=== PATIENT | male | born 1965 | race Caucasian/White ===

== ENCOUNTER 2019-09-16 00:46 | Outpatient (CLI) | payer BC, SELFPAY ==
[2019-09-16 09:50] LABS: Abs Immature Grans 0.01 k/cumm (0.0-0.09); Absolute Basophil Count 0.05 k/cumm (0.0-0.2); Absolute Eosinophil Count 0.07 k/cumm (0.0-0.7); Absolute Lymphocyte Count 2.07 k/cumm (1.2-3.4); Absolute Monocyte Count 0.54 k/cumm (0.11-0.7); Absolute Neutrophil Count 2.68 k/cumm (1.2-6.7); Basophils % 0.9; Eosinophils % 1.3; HCT 44.8 % (40.0-50.0); HGB 15.8 g/dL (13.5-17.5); Immature Grans % 0.2; Lymphocytes % 38.2; Mean Corp. HGB Concentration 35.3 g/dL (32.0-36.0); Mean Corpuscular Hemoglobin 29.6 pg (27.0-33.0); Mean Corpuscular Volume 83.9 fL (80-95); Mean Platelet Volume 9.6 fL (8.0-11.0); Neutrophils % 49.4; Platelet Count 268 x1000/uL (130-400); RBC 5.34 m/cumm (4.50-6.00); RBC Distribution Width 12.1 % (11.8-14.1); White Blood Cell Count 5.42 k/cumm (4.4-10.8)
[2019-09-16 10:39] LABS: Triglyceride 143 mg/dL (<150)
[2019-09-16 12:00] LABS: Calculated LDL 90 mg/dL; Cholesterol 170 mg/dL (<200); HDL Cholesterol 52 mg/dL (40-60)
[2019-09-16 17:49] LABS: Hemoglobin A1C 8.2 % (4.5-6.2)
[2019-09-18 11:12] LABS: PSA, Diagnostic 3.3 ng/mL (0.0-3.5)
== END 2019-09-16 01:06 ==
PROVIDERS: PCP Family Medicine; Visit Provider Family Medicine
DX: E11.9 Type 2 diabetes mellitus without complications (principal); C61 Malignant neoplasm of prostate
CPT/HCPCS: 36415; 80053; 80061; 83036; 84153; 85025

== ENCOUNTER 2020-08-06 01:44 | Outpatient (CLI) | payer BC, SELFPAY ==
[2020-08-06 13:29] LABS: Anion Gap 5.9 mmol/L (3-11); BUN 18 mg/dL (7-18); CO2 30.1 mmol/L (21.0-32.0); CREATININE 0.95 mg/dL (0.70-1.30); Calcium 9.7 mg/dL (8.5-10.1); Chloride 105 mmol/L (98-107); Glucose 146 mg/dL (74-106); Potassium 4.4 mmol/L (3.5-5.1); Sodium 141 mmol/L (136-145); Vitamin B12 1050 pg/mL (193-986)
[2020-08-06 14:37] LABS: Hemoglobin A1C 6.9 % (<5.7)
== END 2020-08-06 02:04 ==
PROVIDERS: PCP Family Medicine; Visit Provider Family Medicine
DX: E11.9 Type 2 diabetes mellitus without complications (principal)
CPT/HCPCS: 36415; 80048; 82607; 83036

== ENCOUNTER 2020-12-25 12:04 | Outpatient (CLI) | payer BC, SELFPAY ==
--- NOTE | 2020-12-25 15:00 | RT.EKG_ITS ---
APPROVED REPORT Exam: Resting ECG Patient Location: O HR:66 bpm ECG Measurements Heart Rate 66 AXIS AL 186 P 45 QRSd 106 QRS -54 QT 383 T 29 QTc 402 Conclusion Sinus rhythm...normal P axis, V-rate 60- 99 Left anterior fascicular block...axis(240,-40), init forces inf
== END 2020-12-25 12:05 | disposition home or self-care (01) ==
LOC: RT 01-06 12:04
PROVIDERS: PCP Family Medicine; Visit Provider Surgery
DX: R94.31 Abnormal electrocardiogram [ECG] [EKG] (principal); E11.9 Type 2 diabetes mellitus without complications; E66.3 Overweight; Z72.0 Tobacco use
CPT/HCPCS: 93005; 93010

== ENCOUNTER 2021-01-13 03:19 | Outpatient (CLI) | payer BC, SELFPAY ==
[2021-01-13 10:57] LABS: Source Nasal/Nares
[2021-01-14 08:58] LABS: COVID-19 PCR Negative (Negative)
== END 2021-01-13 03:20 | disposition home or self-care (01) ==
LOC: LBO 03:20
PROVIDERS: PCP Family Medicine; Visit Provider Surgery
DX: Z20.822 Contact with and (suspected) exposure to COVID-19 (principal); Z01.818 Encounter for other preprocedural examination
CPT/HCPCS: 87635

== ENCOUNTER 2021-01-14 06:10 | Day surgery (SDC) | payer BC, SELFPAY ==
[2021-01-14] VITALS (8 sets, daily range): BP systolic 94–125; BP diastolic 49–72; PULSE 60–84; RESP 14–18; TEMP 36.2–36.7; O2SAT 94–97
[2021-01-14] MEDS: Lactated Ringers 1,000 ML 80 ML IV (07:05)
[2021-01-14] MEDS: ceFAZolin 2 GM/50 ML BAG IVPB (09:20)
--- NOTE | 2021-01-14 09:32 | PDOC.DSDIS_ITS ---
Discharge Plan Disposition Patient Disposition: HOME Condition: Good Discharge Details Reason For Visit: right inguinal hernia repair Attending Provider: Jemima Sainz Primary Care Provider: Julio Cesar Ribera Meds and New Rx's Prescriptions: New ibuprofen 600 mg tablet 600 mg PO Q6H PRNQty: 90 RF: 3 tramadol [Ultram] 50 mg tablet 50 mg PO Q4H PRNQty: 7 RF: 0 Continued Jardiance 25 mg tablet 25 mg PO QAM Qty: 90 RF: 3 (DME) FreeStyle Dyllan 14 Day [place] Misc See Rx Instructions .ROUTE .MEDSUPPLY Qty: 1 RF: 0 finasteride 5 mg tablet 5 mg PO DAILY RF: 0 venlafaxine 225 mg tablet extended release 24hr 225 mg PO DAILY Qty: 90 RF: 3 (DME) blood-glucose meter [Advanced Glucose Meter] [facility] See Rx Instructions .ROUTE .MEDSUPPLY Qty: 1 RF: 0 (DME) FreeStyle Dyllan 14 Day Sensor Kit See Rx Instructions .ROUTE .MEDSUPPLY Qty: 13 RF: 1 metformin 500 mg tablet 1,000 mg PO BID Qty: 360 RF: 3 tamsulosin 0.4 mg capsule 0.8 mg PO DAILY Qty: 180 RF: 3 (DME) Advanced Gluc Meter Test Strip Strip See Rx Instructions .ROUTE .MEDSUPPLY Qty: 10 RF: 5 vitamin B complex Capsule 1 cap PO DAILY RF: 0 Discharge Instructions Additional Instructions: Dr. Sainz HERNIA REPAIR ? POSTOPERATIVE INSTRUCTIONS Patients who have this type of surgery can usually be expected to return to work within two weeks and have minimal amounts of discomfort. ? ACTIVITY: The day of surgery should be spent resting. However, you can be up for short periods of time, I.E., going to the bathroom or kitchen. Avoid lifting or straining. On the day following surgery, you can be up and about as desired. ? LIFTING: Restrict your lifting to no more than five (5) pounds for the first week following surgery. For the second week after surgery, don?t lift more than ten pounds. We will decide when you are done with restrictions and when you can return to work, at your follow-up appointment. No sexual activity for two weeks. ? DIET: There are no dietary restrictions following surgery. However, you may want to start with small amounts of liquids to avoid nausea the day of surgery. ? INCISION CARE: You will notice purple skin glue closing the incision. Do not peel this off- it will wear off on its own. After 24 hours you may shower. The dressing may be replaced for comfort, but is not necessary. An ice bag may be applied to the incision for 72 hours following surgery. ? SIGNS OF INFECTION: It is not unusual to have some black and blue discoloration of the skin around the incision, but also scrotum and penis. It will slowly disappear. If you have any increased redness, drainage, fever (above 100 degrees), please contact your doctor for an examination. ? DISCOMFORT: You may expect to have some mild discomfort at the incision sight. If severe pain develops you should contact your doctor for further instructions. ? URINATION: Patients who have surgery occasionally have problems urinating. If you experience problems and are not able to urinate within 6 hours following your surgery, please call your doctor immediately or go to your nearest Emergency Room for evaluation. ? DRIVING: NO driving for three (3) days after surgery, or if you are still taking narcotic pain medication. ? MEDICATIONS: Alternate Tylenol 1000mg by mouth every 8 hours and Ibuprofen 600mg every 6 hours. Make sure you take ibuprofen with food and not on an empty stomach. Take the Tylenol and ibuprofen continuously for the first 72hrs- not just when you have pain. Use the tramadol for breakthrough pain. Use ICE! Twenty minutes on, and then off, continuously for the first 72hours. If you are taking narcotic pain medication, follow the instructions on the label and do not drive. Pain medications can make you very constipated. Make sure you are moving your bowels daily. If not, take Miralax, milk of magnesia or magnesium citrate. Anesthesia makes you very constipated. Take a dose of milk of magnesia the morning after surgery. ? REPORT: Unusual swelling, severe pain, unresolved nausea, signs of infection, or difficulty in urination to your surgeon. Follow up in clinic with Dr. Sainz in 1-2 weeks. [phone] Activity:: see above Remove Dressings/Wound Care:: 24 hours Shower/Bathe:: 24 hours Diet:: Carb Counting Discharge Orders Discharge Orders: Discharge Order (Routine); Ordered 01/14/21 Ordered By: Jemima M Stoiber DS: Diagnosis Discharge Diagnosis (1) Inguinal hernia of right side without obstruction or gangrene: Status: Acute
[2021-01-14] MEDS: Bupivacaine 0.25% Pres-Free 30 ML VIAL (10:27)
--- NOTE | 2021-01-14 10:31 | ROE_ITS ---
Date of service: 01/14/21 Time of Service: 10:31 Operative Note Operative Note DATE OF PROCEDURE: 01/14/21 PRE-OP DIAGNOSIS: right inguinal hernia POST-OP DIAGNOSIS: other (indirect) SURGEON: Jemima Blackmon ADJUNCT SOCIOLOGY PROFESSOR: Kathy Marquez ANESTHESIA TYPE: Local By Surgeon, General LMA/ETT and Primary Nerve Block Refer to Anesthesia Record ESTIMATED BLOOD LOSS: 5 PATHOLOGY: none sent COMPLICATIONS: None Patient was transported to: same day Patient's condition: stable Procedure Description: INDICATIONS: The pt is here today for surgery regarding symptomatic --- inguinal hernia that has failed outpatient conservative medical management and he is here today for repair. Informed consent was obtained, explaining risks and benefits of the procedure including but not limited to bleeding, infection, pneumonia, blood clots, chronic pain, chronic numbness, damage to testicle resulting in removal, recurrence of hernia, reaction to Mesh necessitating removal, and other unforetold complications, and complications of anesthesia-which were addressed by the HOROLOGIST APPRENTICE. The patient is marked in preOp prior to the procedure DESCRIPTION OF PROCEDURE: The pt is then brought to the operative room suite. Anesthesia was administered per the Department of Anesthesia. A nerve block was performed by anesthesia under US guidance. The patient was prepped and draped in the usual sterile fashion using ChloraPrep scrub solution. Pause for the cause was done. He did receive preop IV antibiotics, and 30 mL of .25% Marcaine w/ epinephrine was used for local anesthetization. A #12 blade was used to make an incision over the external ring. Electrocautery used to provide hemostasis and dissect down to the fascia. The fascia was pretty much obliterated and there was nothing to open. The cord is elevated. The nerve was not identified. There small a cord lipomas-this is excised. Electro-cautery is used to provide hemostasis. A [place] drain was placed around the cord to assist in mobilization. The cord was explored. There was is a large hernia sac on the cord. There is no direct hernia pushing through the floor. The hernia sac is dissected off the cord using a combination of blunt dissection and electrocautery. Electrocautery is used to provide hemostasis. There are no contents within the hernia sac. The hernia sac is than inverted and returned to the abdominal cavity. A medium size plug is than inserted into the defect through the internal ring, and over sewn to tighten up the ring with 2-0 vicryl. Please see RN notes from Lot number of the Bard mesh patch/plug. The cord structures are still able to freely move through the ring itself. The patch was then placed onto the floor, and using 2-0 Vicryl, sewn into the pubic tubercle and the shelving portions of the inguinal ligament, in the standard Lichenstein fashion. The tails of the mesh are brought around the cord, sewn together w/ 2-0 Vicryl, and tucked under the external oblique. The wound was copiously irrigated. There was no bleeding noted. The drain was removed. All structures are returned to normal anatomical position. The nerve is not sewn into the mesh, nor caught up in any sutures. The external oblique is re-approximated using 2-0 vicryl in a running fashion. Deep tissue was approximated with 3-0 Vicryl in a running fashion, and skin was approximated with 4-0 Monocryl in a running subcuticular fashion. Skin glue and sterile dressings are applied. The patient tolerated the procedure without complications to recovery in stable condition. JEMIMA BLACKMON, DO
[2021-01-14] MEDS: traMADol 50 MG TAB PO (13:08)
== END 2021-01-14 13:47 | disposition home or self-care (01) ==
PROVIDERS: PCP Family Medicine; Visit Provider Surgery
PROC: (CPT 49505; principal; 2021-01-14 07:30)
DX: K40.90 Unilateral inguinal hernia, without obstruction or gangrene, not specified as recurrent (principal); G89.18 Other acute postprocedural pain; C61 Malignant neoplasm of prostate; E11.9 Type 2 diabetes mellitus without complications
CPT/HCPCS: 49505; 76942; C1781; J0131; J0690; J1100; J1885; J2001; J2250; J2405

== ENCOUNTER 2022-01-19 18:47 | Emergency (ER) | payer BC, SELFPAY ==
[2022-01-19 19:02] VITALS: BP 137/87; PULSE 72; RESP 18; O2SAT 97
--- NOTE | 2022-01-19 19:25 | DI.RAD_ITS ---
Exam(s) XR FINGER LT RING EXAM: XR FINGER LT RING EXAM DATE/TIME: CLINICAL HISTORY: table saw injury distal. TECHNIQUE: 2D digital imaging was performed of the left finger. Three views were obtained. PA/AP, oblique, and lateral views were obtained. COMPARISON: None. FINDINGS: BONES: No acute fracture is present. No bony destructive lesion is seen. JOINTS: No dislocation is present. SOFT TISSUE: There is soft tissue swelling of the distal 4th finger. No radiopaque foreign bodies id entified. IMPRESSION: No evidence of acute fracture or dislocation. DATA REPOSITORY: RADIATION DOSE DELIVERED:
--- NOTE | 2022-01-19 19:25 | W.ED.GENAD ---
Discharge Plan Disposition Patient Disposition: HOME Condition: Stable Discharge Details Clinical Impression: Finger laceration Primary Care Provider: Randolph Torre ED Provider: Yary Arnold Home Meds and New Rx's Prescriptions: New cephalexin 500 mg tablet 500 mg PO QID 5 Days Qty: 20 0RF Continued nystatin 100,000 unit/gram powder 1 applic topical DAILY Qty: 30 1RF levofloxacin 500 mg tablet 500 mg PO DAILY Qty: 10 0RF (DME) FreeStyle Dyllan 14 Day [place] Misc See Rx Instructions .ROUTE .MEDSUPPLY Qty: 1 0RF Rx Instructions: As directed finasteride 5 mg tablet 5 mg PO DAILY 0RF (DME) blood-glucose meter [Advanced Glucose Meter] Misc See Rx Instructions .ROUTE .MEDSUPPLY Qty: 1 0RF Rx Instructions: Daily venlafaxine 225 mg tablet extended release 24hr 225 mg PO DAILY Qty: 90 3RF (DME) FreeStyle Dyllan 14 Day Sensor Kit See Rx Instructions .ROUTE .MEDSUPPLY Qty: 1 0RF Rx Instructions: As directed (DME) Advanced Gluc Meter Test Strip Strip See Rx Instructions .ROUTE .MEDSUPPLY Qty: 10 5RF Rx Instructions: Daily Jardiance 25 mg tablet 25 mg PO QAM Qty: 90 3RF dextroamphetamine-amphetamine 25 mg capsule,extended release 24hr 25 mg PO DAILY MDD 25mg Qty: 28 0RF metformin 500 mg tablet 1,000 mg PO BID Qty: 360 3RF vitamin B complex Capsule 1 cap PO DAILY 0RF ibuprofen 600 mg tablet 600 mg PO Q6H PRNQty: 90 3RF Rx Instructions: take w/ food acetaminophen 500 mg Tablet 500 mg PO Q6H PRN0RF tamsulosin 0.4 mg capsule 0.8 mg PO BID 0RF Discharge Instructions Instructions: Cephalexin (By mouth), Finger Laceration (ED) Additional Instructions: Your x-ray does not show any fracture or involvement of the bone. The edges of your wound were not able to be put together because much of the tissue was missing from the initial injury. Please continue to keep wound clean, dry, covered. Monitor for signs of infection including redness, warmth, drainage, increased pain, fevers/chills. If you develop these or other new/worsening symptoms please seek care urgently once again. Use the splint to protect the area and help with pain. You may use tylenol and/or Ibuprofen as needed for discomfort. Please call your primary care tomorrow to schedule follow up for your wound at the end of the week. Referrals: Randolph Torre NP [Primary Care Provider] - Discharge Data Discharge Date/Time-TO BE ENTERED AT DEPARTURE: 01/19/22 20:49 Medical Decision Making Patient is a pleasant [id number] 56-year-old male presenting today with chief complaint of laceration to his left ring finger. He reports a prior to arrival he was cutting wood with a table saw when he accidentally cut his finger. Suffered a linear gouge along the ulnar side of the dorsal aspect left finger. This did not appear to involve part of the nail. He reports his tetanus is present 3 years ago. Denies any numbness or tingling. No other injury the time of the incident. On exam, patient appears nontoxic. He has a 5 mm gouge of tissue missing from the base of the nail to the tip of the finger on the lateral aspect of the nail. I am not able to visualize any bone at this time. However, depth is difficult to assess. I am not able to reapproximate the wound edges. Patient sensation is intact, intact capillary refill. Patient is able to extend against resistance. Patient I discussed her/benefits as well as expected procedural steps associated with digital block. Patient voiced understanding wish to proceed. Using sharp technique, 5 cc of 2% lidocaine plain was infiltrated with good results of anesthesia. Will obtain x-ray to evaluate for any bony abnormality. FINDINGS: Bones/joints: Normal. Soft tissues: Normal. IMPRESSION: No acute findings. Discussed findings with the patient. We discussed wound care. I evaluated the wound again and am unable to reapproximate any of the wound edges. This iwll need to heal through secondary intention. However, I did clean the wound with copious amounts of sterile saline. Nonadhesive dreessing applied. Explored to base in a bloodless field. No FB or debris noted. Patient is immunocomprobised, hx of DM and prostate cancer. Concerned that, particular as the saw was reported to be quite dirty, that he could be at risk for infection. Will do short course of Keflex. Dressing applied. Gave splint to wear when at work to help with discomfort and protect while this heals. I encouraged that he f/u with PCP to ensure that he heals well without cmplication. Return precautions discussed, in particular signs of infection. All of his questions and concerns were addressed, he is in agreement with this plan. HPI General Date/Time Provider Initiated Documentation: 01/19/22 18:48. Limitations to Documentation: no limitations. Information obtained by: patient, family and RN notes reviewed. History of Present Illness 56 year old M presents to the emergency department with the chief complaint of left ring finger laceration, described as mild, Quality is described as aching, and is localized to the left and upper extremity. Patient reports no radiation. Patient started experiencing this minute(s) and it has been constant. improves with No relieving factors improve symptom(s), No exacerbating factors reported . Patient notes no other symptoms.. Patient did receive the following treatments prior to arrival, none Related Data Home Medications Medication Instructions Recorded Confirmed flash glucose scanning reader #1 each 03/21/20 08/28/21 (FreeStyle Dyllan 14 Day [place]) finasteride 5 mg tablet 5 mg PO DAILY 08/07/20 01/19/22 blood-glucose meter (Advanced #1 ea 12/25/20 08/28/21 Glucose Meter) blood sugar diagnostic (Advanced #10 ea 01/09/21 08/28/21 Gluc Meter Test Strip) ibuprofen 600 mg tablet 600 mg PO Q6H PRN #90 tab 01/14/21 08/28/21 vitamin B complex 1 cap PO DAILY 01/14/21 01/19/22 venlafaxine 225 mg tablet,extended 225 mg PO DAILY #90 tab 08/06/21 01/19/22 release 24 hr flash glucose sensor ([employer] #1 ea 08/07/21 08/28/21 Dyllan 14 Day Sensor) empagliflozin 25 mg tablet 25 mg PO QAM #90 tab 12/15/21 01/19/22 (Jardiance) acetaminophen 500 mg tablet 500 mg PO Q6H PRN 01/19/22 01/19/22 cephalexin 500 mg tablet 500 mg PO QID 5 Days #20 tab 01/19/22 tamsulosin 0.4 mg capsule 0.8 mg PO BID 01/19/22 01/19/22 dextroamphetamine-amphetamine ER 25 mg PO DAILY #28 cap MDD 25mg 01/23/22 01/23/22 25 mg 24hr capsule,extend release metformin 500 mg tablet 1,000 mg PO BID #360 tab 01/23/22 01/23/22 Previous Rx's Medication Instructions Recorded flash glucose scanning reader #1 each 03/21/20 (FreeStyle Dyllan 14 Day [place]) blood-glucose meter (Advanced #1 ea 12/25/20 Glucose Meter) blood sugar diagnostic (Advanced #10 ea 01/09/21 Gluc Meter Test Strip) ibuprofen 600 mg tablet 600 mg PO Q6H PRN #90 tab 01/14/21 venlafaxine 225 mg tablet,extended 225 mg PO DAILY #90 tab 08/06/21 release 24 hr flash glucose sensor (FreeStyle #1 ea 08/07/21 Dyllan 14 Day Sensor) empagliflozin 25 mg tablet 25 mg PO QAM #90 tab 12/15/21 (Jardiance) cephalexin 500 mg tablet 500 mg PO QID 5 Days #20 tab 01/19/22 dextroamphetamine-amphetamine ER 25 mg PO DAILY #28 cap MDD 25mg 01/23/22 25 mg 24hr capsule,extend release metformin 500 mg tablet 1,000 mg PO BID #360 tab 01/23/22 Allergies Allergy/AdvReac Type Severity Reaction Status Date / Time No Known Allergies Allergy Verified 01/19/22 19:55 General Stated Complaint: Laceration GINA: 4 Review of Systems Constitutional Constitutional: Reports as per HPI, Denies chills and Denies fever(s) Musculoskeletal Musculoskeletal: Reports as per HPI Integumentary/Breasts Skin/Breast: Reports as per HPI Neurologic Neurologic: Reports as per HPI, Denies sensory deficit and Denies paresthesias PFSH All Active Problems (Updated 01/19/22 @ 20:33 by LELAND James) Finger laceration (Acute) Diabetes (Chronic) Plica syndrome (Acute) Smoker (Acute) Family history of melanoma (Acute) Attention deficit disorder (ADD) in adult (Acute) Smokeless tobacco use (Acute) Overweight (Acute) Depression (Chronic) Prostate cancer (Chronic) Kidney stone (Chronic) Medical History Depression Diabetes Kidney stone THAD (obstructive sleep apnea) Uses CPAP Overweight Prostate cancer Surgical History Cholecystectomy planned (~2006) History of appendectomy (~1976) History of inguinal hernia repair (~01/14/21) History of surgery removal of kidney stones Family History Mother No problems noted. Father No problems noted. Sister No problems noted. Sister , age 54 Cancer Sister No problems noted. Maternal Grandfather No problems noted. Paternal Grandfather No problems noted. Maternal Grandmother No problems noted. Paternal Grandmother No problems noted. Social History (Updated 08/29/21 @ 18:19 by Linda Meneses) Smoking/Tobacco Use Status: Current every day Tobacco Type: smokeless tobacco Tobacco: How many years used: 40 Smokeless tobacco user: snuff Quit status: not considering quitting Second Hand Exposure: Yes Smoking risk assessment performed?: Yes Alcohol Intake: current Alcohol Intake frequency: a few times a month Alcohol type: beer Drug use: Never Substance use type: does not use Caregiver/Support person: No Household members: spouse Housing: house Communication Needs: None Do you need help understanding health information?: Rarely Pets and animals: Yes Pets and animals: dog(s) Sexually active: Yes Do you think of yourself as: straight/heterosexual Current gender identity: male What is your relationship status?: How often do you talk on the phone with friends or family?: decline to answer How often do you get together with friends or relatives?: decline to answer How often do you attend confucianism or latter day services?: decline to answer Do you belong to any clubs or organized social groups?: decline to answer Panel score (0-1 are the most socially isolated patients): 1 What type of physical activity do you participate in: none Eunice/Shinto: No preference Special eunice needs: No Seatbelt use: always Do you feel safe at home: Yes Do you feel safe in your relationship?: Yes Exam Const General: cooperative, healthy appearing, comfortable, no acute distress and well developed Nutritional Appearance: average body habitus and well nourished Orientation: alert and awake Resp Effort & Inspection: normal respiratory effort, able to speak in complete sentences and no respiratory distress Cardio Rate: regular rate Rhythm: regular rhythm Skin Trauma: laceration Neuro General: patient alert and patient awake Cognition: normal cognition Speech: speech normal Gait: normal gait Sensory Exam: no sensory deficits noted Extrem Hand/finger images: 1. Laceration, jagged edges with separation of wound edges. Unable to pull wound edges together. Through nail. Bone not able to be visualized. Full extension, flexion. Capillary refill intact. Sensation intact in distal finger. Nail bed appeears to only be disrupted at the lateral most aspect, bed otherwise intact Psych Appearance: grossly normal and well kempt Mental Status: mental status grossly normal Speech and Movement: speech and movement normal Course Vital Signs Vital signs: Vital Signs Pulse 72 01/19/22 19:02 Respiratory Rate 18 01/19/22 19:02 Blood Pressure 137/87 01/19/22 19:02 Pulse Oximetry 97 01/19/22 19:02 Pulse 72 01/19/22 19:02 Respiratory Rate 18 01/19/22 19:02 Blood Pressure 137/87 01/19/22 19:02 Blood Pressure Position Sitting 01/19/22 19:02 Pulse Oximetry 97 01/19/22 19:02 Oxygen Delivery Method Room Air 01/19/22 19:02 Oxygen Flow Rate 0 01/19/22 19:02
[2022-01-19] MEDS: Lidocaine 2% Multi-Dose 50 ML VIAL (19:54)
--- NOTE | 2022-01-19 20:07 | DI.VRAD_ITS ---
PROCEDURE INFORMATION: Exam: XR Left Finger(s) Exam date and time: 01/19/2022 7:36 PM Age: 56 years old Clinical indication: Other: Table saw injury to ring finger distal TECHNIQUE: Imaging protocol: XR Left fingers. Views: Minimum 2 views. COMPARISON: No relevant prior studies available. FINDINGS: Bones/joints: Negative for fracture. Negative for dislocation. Soft tissues: Soft tissue swelling noted at the distal 4th finger. Dressing material is in place. No foreign bodies are observed. IMPRESSION: Negative for fracture. Dictated and Authenticated by: Richmond Hawkins MD. Ordering:BISHNU Pringle MD
[2022-01-19] MEDS: Cephalexin 500 MG CAP, 2 CAPS/BTL PO (20:46)
[2022-01-19 20:47] VITALS: BP 127/77; PULSE 77; RESP 18; TEMP 37.1; O2SAT 95
== END 2022-01-19 20:49 | disposition home or self-care (01) ==
PROVIDERS: Emergency Provider Physician Assistant; PCP Nurse Practitioner Family
DX: S61.215A Laceration without foreign body of left ring finger without damage to nail, initial encounter (principal); W31.2XXA Contact with powered woodworking and forming machines, initial encounter; E11.9 Type 2 diabetes mellitus without complications; D84.81 Immunodeficiency due to conditions classified elsewhere
CPT/HCPCS: 99283; 73140

== ENCOUNTER 2022-09-17 21:36 | Outpatient (REF) | payer BC, SELFPAY ==
[2022-09-17 22:09] LABS: CREATININE 1.3 mg/dL (0.70-1.30); Calculated LDL 91 mg/dL (<100); Cholesterol 222 mg/dL (<200); Estimated GFR 64.47 (mL/min/1.73m2); HDL Cholesterol 57 mg/dL (40-60); Potassium 3.7 mmol/L (3.5-5.1); Triglyceride 373 mg/dL (<150)
== END 2022-09-17 21:37 | disposition home or self-care (01) ==
LOC: LBN 21:36
PROVIDERS: PCP Nurse Practitioner Family; Visit Provider Nurse Practitioner Family
DX: E66.3 Overweight (principal); E11.9 Type 2 diabetes mellitus without complications
CPT/HCPCS: 80061; 84153; 82565; 84132

== ENCOUNTER 2023-01-04 16:10 | Outpatient (REF) | payer BC, SELFPAY ==
[2023-01-04 21:48] LABS: COMMENT (LAB VIEW ONLY) 82.87 mg/dL; Microalb ug/mg Crea 10.6 ug/mg Cr
== END 2023-01-04 16:11 | disposition home or self-care (01) ==
LOC: LBN 16:10
PROVIDERS: PCP Nurse Practitioner Family; Visit Provider Nurse Practitioner Family
DX: E11.9 Type 2 diabetes mellitus without complications (principal)
CPT/HCPCS: 82043; 82570

== ENCOUNTER 2023-03-18 16:50 | Outpatient (REF) | payer BC, SELFPAY | END 2023-03-18 16:51 | disposition home or self-care (01) | LOC: LBN 16:50 | PROVIDERS: PCP Nurse Practitioner Family; Visit Provider Urology | DX: N40.0 Benign prostatic hyperplasia without lower urinary tract symptoms (principal) | CPT/HCPCS: 87086 ==

== ENCOUNTER 2023-04-06 14:49 | Outpatient (REF) | payer BC, SELFPAY | END 2023-04-06 14:50 | disposition home or self-care (01) | LOC: LBN 14:49 | PROVIDERS: PCP Nurse Practitioner Family; Visit Provider Urology | DX: R39.9 Unspecified symptoms and signs involving the genitourinary system (principal) | CPT/HCPCS: 87086 ==

== ENCOUNTER 2023-04-28 14:53 | Outpatient (REF) | payer BC, SELFPAY | END 2023-04-28 14:54 | disposition home or self-care (01) | LOC: LBN 14:53 | PROVIDERS: PCP Nurse Practitioner Family; Visit Provider Nurse Practitioner Family | DX: R30.0 Dysuria (principal) | CPT/HCPCS: 87086 ==

== ENCOUNTER 2023-08-10 22:06 | Outpatient (CLI) | payer BC, SELFPAY ==
[2023-08-10 15:10] LABS: Abs Immature Grans 0.01 10^3/uL (0.0-0.06); Absolute Basophil Count 0.05 10^3/uL (0.0-0.2); Absolute Eosinophil Count 0.05 10^3/uL (0.0-0.7); Absolute Lymphocyte Count 1.86 10^3/uL (1.2-3.4); Absolute Neutrophil Count 2.97 10^3/uL (1.2-6.7); Basophils % 0.9; Eosinophils % 0.9; HCT 48.7 % (40.0-50.0); HGB 16.7 g/dL (13.5-17.5); Immature Grans % 0.2; Lymphocytes % 33.6; MCH 29.1 pg (27.0-33.0); MCHC 34.3 % (32.0-36.0); MCV 85 fL (80-95); MPV 9.2 fL (8.0-11.0); Monocytes % 10.8; Neutrophils % 53.6; Platelet Count 233 10^3/uL (130-400); RBC 5.73 10^6/uL (4.36-5.78); RDW 11.9 % (11.8-14.1); RDW-SD 36.7 fL; WBC 5.54 10^3/uL (4.4-10.8)
[2023-08-10 15:58] LABS: Ferritin 437 ng/mL (26-388); TSH (W/Ref FT4) 2.44 uIU/mL (0.36-3.74); Vitamin B12 975 pg/mL (193-986)
[2023-08-10 16:31] LABS: Iron 45 ug/dL (65-175); Total Iron Binding Capacity 314 ug/dL (250-450)
[2023-08-10 17:21] LABS: Vitamin D 25 Total 26.5 ng/mL (30-100)
[2023-08-11 09:09] LABS: Transferrin 246 mg/dL (201-352)
== END 2023-08-10 22:07 | disposition home or self-care (01) ==
LOC: LBO 22:06
PROVIDERS: PCP Nurse Practitioner Family; Visit Provider Nurse Practitioner Family
DX: R53.83 Other fatigue (principal)
CPT/HCPCS: 36415; 82306; 82607; 82728; 83540; 83550; 84443; 84466; 85025

== ENCOUNTER 2023-10-14 14:07 | Outpatient (CLI) | payer BC, SELFPAY ==
[2023-10-14 13:54] LABS: Hemoglobin A1C 6.4 % (<5.7)
[2023-10-14 14:12] LABS: Calculated LDL 102 mg/dL (<100); Cholesterol 178 mg/dL (<200); HDL Cholesterol 56 mg/dL (40-60); Triglyceride 101 mg/dL (<150)
== END 2023-10-14 14:08 | disposition home or self-care (01) ==
LOC: LBO 14:07
PROVIDERS: PCP Nurse Practitioner Family; Visit Provider Nurse Practitioner Family
DX: Z00.00 Encounter for general adult medical examination without abnormal findings (principal); E11.9 Type 2 diabetes mellitus without complications
CPT/HCPCS: 36415; 80061; 83036

== ENCOUNTER → 2023-12-13 03:20 | Outpatient (CLI) | payer BC, SELFPAY ==
--- NOTE | 2023-12-13 14:45 | DI.MRI_ITS ---
Exam(s) MR BRAIN PITUITARY WO EXAM: MR BRAIN PITUITARY WO CLINICAL HISTORY: Anosmia since February, increasing retro-orbital headacHE,R51.9,R43.1,R43.0 TECHNIQUE: Multiplanar multisequence MRI of the brain and pituitary gland was performed. CONTRAST MATERIAL: Noncontrast. COMPARISON: No exams were available for comparison Findings: VENTRICLES AND EXTRA AXIAL SPACES: Normal in size and morphology for the patient's age. HEMORRHAGE: None. CEREBRAL PARENCHYMA: No focus of restricted diffusion to suggest acute infarct. No space-occupying le lluvia identified. MIDLINE SHIFT: None. BRAINSTEM/CEREBELLUM: Normal. CALVARIUM: Normal. ENHANCEMENT: No suspicious enhancement identified. VISUALIZED PARANASAL SINUSES/MASTOIDS: Complete opacification of the left maxillary sinus. Sinuses o therwise clear. OTHER FINDINGS: None. PITUITARY: Pituitary stalk is midline. The gland demonstrates homogenous T2-weighted signal intensity. Gland no rmal size. The optic chiasm is unremarkable. The cavernous portions of both carotid arteries are unremarkable. Impression: Unremarkable MRI of the brain and pituitary gland. Opacification of the left maxillary sinus. DATA REPOSITORY:
== END ==
PROVIDERS: PCP Nurse Practitioner Family; Visit Provider Otolaryngology
DX: R51.9 Headache, unspecified (principal); R43.1 Parosmia
CPT/HCPCS: 70551

== ENCOUNTER 2024-05-03 20:50 | Outpatient (REF) | payer BC, SELFPAY ==
[2024-05-03 22:08] LABS: COMMENT (LAB VIEW ONLY) 189.63 mg/dL; Microalb ug/mg Crea 7.4 ug/mg Cr
== END 2024-05-03 20:51 | disposition home or self-care (01) ==
LOC: LBN 20:50
PROVIDERS: PCP Nurse Practitioner Family; Visit Provider Nurse Practitioner Family
DX: E11.9 Type 2 diabetes mellitus without complications (principal)
CPT/HCPCS: 82043; 82570

== ENCOUNTER 2024-11-14 03:13 | Outpatient (CLI) | payer BC, SELFPAY ==
[2024-11-14 15:29] LABS: ALT 39 U/L (16-63); AST 26 U/L (15-37); Albumin 3.9 g/dL (3.4-5.0); Alkaline Phosphatase 62 U/L (46-116); Anion Gap 9.2 mmol/L (3-11); BUN 18 mg/dL (7-18); Bilirubin, Total 0.33 mg/dL (0.2-1.0); CO2 27.8 mmol/L (21.0-32.0); CREATININE 1.3 mg/dL (0.70-1.30); Calcium 9.5 mg/dL (8.5-10.1); Calculated LDL 51 mg/dL (<100); Chloride 105 mmol/L (98-107); Cholesterol 175 mg/dL (<200); Estimated GFR 63.28 (mL/min/1.73m2); Glucose 213 mg/dL (74-106); HDL Cholesterol 57 mg/dL (40-60); Potassium 3.7 mmol/L (3.5-5.1); Sodium 142 mmol/L (136-145); Total Protein 7.3 g/dL (6.4-8.2); Triglyceride 335 mg/dL (<150)
== END 2024-11-14 03:14 | disposition home or self-care (01) ==
LOC: LBO 03:13
PROVIDERS: PCP Nurse Practitioner Family; Visit Provider Nurse Practitioner Family
DX: E11.9 Type 2 diabetes mellitus without complications (principal); Z79.4 Long term (current) use of insulin; Z13.220 Encounter for screening for lipoid disorders
CPT/HCPCS: 36415; 80053; 80061

== ENCOUNTER 2025-07-06 16:05 | Outpatient (CLI) | payer BC, SELFPAY ==
[2025-07-06 15:44] LABS: Abs Immature Grans 0.02 10^3/uL (0.0-0.06); HCT 44.0 % (40.0-50.0); HGB 15.7 g/dL (13.5-17.5); Immature Grans % 0.3 %; MCH 29.8 pg (27.0-33.0); MCHC 35.7 % (32.0-36.0); MCV 84 fL (80-95); MPV 9.4 fL (8.0-11.0); Platelet Count 231 10^3/uL (130-400); RBC 5.27 10^6/uL (4.36-5.78); RDW 11.9 % (11.8-14.1); RDW-SD 35.5 fL; WBC 6.54 10^3/uL (4.4-10.8)
[2025-07-06 17:11] LABS: Iron 50 ug/dL (65-175); Total Iron Binding Capacity 277 ug/dL (250-450)
[2025-07-06 17:29] LABS: Ferritin 449 ng/mL (26-388); TSH (W/Ref FT4) 2.59 uIU/mL (0.36-3.74); Vitamin B12 940 pg/mL (193-986)
[2025-07-09 11:07] LABS: Transferrin 220 mg/dL (201-352)
== END 2025-07-06 16:06 | disposition home or self-care (01) ==
LOC: LBO 16:07
PROVIDERS: PCP Nurse Practitioner Family; Visit Provider Nurse Practitioner Family
DX: D50.9 Iron deficiency anemia, unspecified (principal)
CPT/HCPCS: 36415; 82607; 82728; 83540; 83550; 84443; 84466; 85025